=== PATIENT | female | born 2005 | race Caucasian/White ===

== ENCOUNTER 2024-03-21 20:48 | Emergency (ER) | payer BC ==
[~2024-03-21] VITALS: Ht 161.3 cm; Wt 81.7 kg
[2024-03-22] MEDS ORDERED: AMIT75TA PO (00:05)
[2024-03-22] MEDS ORDERED: VIEN1TAB PO (00:06)
[2024-03-22] MEDS ORDERED: NAPR-837 PO (00:33)
[2024-03-22] MEDS: NAPROXEN 250 MG TAB PO ONE (00:46)
[2024-03-22 00:58] VITALS: BP 134/77; TEMP 98.5; O2SAT 100
== END 2024-03-22 01:06 | disposition home or self-care (01) ==
LOC: EDBD 20:48 → M ED 20:48
DX: M25.561 Pain in right knee (principal); Z88.1 Allergy status to other antibiotic agents; Z88.2 Allergy status to sulfonamides; Z79.899 Other long term (current) drug therapy